=== PATIENT | female | born 1960 | race Caucasian/White ===

== ENCOUNTER 2021-07-06 13:08 | Outpatient (CLI) | payer OTHER | END 2021-07-06 13:09 | disposition home or self-care (01) | LOC: CSHULT 13:08 | PROVIDERS: ATTEND Family Medicine | DX: R10.12 Left upper quadrant pain (principal) | CPT/HCPCS: 76700 ==

== ENCOUNTER 2024-07-23 07:57 | Outpatient (CLI) | payer OTHER | END 2024-07-23 07:58 | disposition home or self-care (01) | LOC: CSHCP 07:57 | PROVIDERS: ATTEND Internal Medicine | DX: R05.3 Chronic cough (principal) | CPT/HCPCS: 94060; 94664; 94726; 94729; 94760 ==

== ENCOUNTER 2024-12-09 08:23 | Outpatient (CLI) | payer OTHER ==
[~2024-12-09 08:23] MED LIST: Acetaminophen 325 MG TAB PO PRN; Acetaminophen 325 MG TAB PO SCH; Aspirin Chewable 81 MG TAB PO SCH; Atorvastatin Calcium 40 MG TAB PO SCH; Clopidogrel Bisulfate 75 MG TAB PO SCH; Dextrose 5% in Water 1,000 ML IV PRN; Dextrose 50% Abboject 50 ML SYRINGE SLOW IVP PRN; Empagliflozin 10 MG TAB PO SCH; Enoxaparin 40 MG (0.4 mL) SYRINGE SC SCH; Gabapentin 100 MG CAP PO SCH; Gabapentin 300 MG CAP PO SCH; Glucagon 1 MG/ML KIT IM PRN; Insulin Lispro 100 UNIT/ML 10 ML VIAL SC PRN; Lidocaine 4% Patch TD SCH; MULTIVITAMIN PO SCH; Meclizine HCl 12.5 MG TAB PO PRN; Nitroglycerin 0.4 MG TAB (25 Tab Bottle) SL SCH; Non-Formulary Medication 1 EACH (Omeprazole [Omeprazole] 20 MG Capsule.Dr) PO SCH; Ranolazine ER 500 MG TAB PO SCH
== END 2024-12-09 08:24 | disposition home or self-care (01) ==
LOC: CSHSLEEP 08:23
PROVIDERS: ATTEND Internal Medicine
DX: G47.33 Obstructive sleep apnea (adult) (pediatric) (principal); E11.9 Type 2 diabetes mellitus without complications; R06.83 Snoring; E66.9 Obesity, unspecified; Z68.39 Body mass index [BMI] 39.0-39.9, adult
CPT/HCPCS: 95811